=== PATIENT | female | born 1965 | race Caucasian/White ===

== ENCOUNTER 2021-05-20 09:57 | Observation (INO) | payer OTHER, SELFPAY ==
[2021-05-20] VITALS (8 sets, daily range): BP systolic 119–147; BP diastolic 72–87; PULSE 75–112; RESP 16–22; TEMP 36.7–36.9; O2SAT 91–97; BMI 29.2
--- NOTE | ~2021-05-20 | XR_ITS ---
EXAMINATION: XR CHEST CLINICAL INFORMATION: SOB, cough and asthma. COMPARISON: Chest 03/26/2017 TECHNIQUE: Frontal view of the chest was obtained. FINDINGS: The lungs are well-expanded and clear of acute pneumonic process. The heart size and pulmonary vascularity is normal. No gross bony abnormality seen. XR/XR chest 1V IMPRESSION: Unremarkable chest exam.
[2021-05-20 10:30] LABS: MANUAL DIFF FLAG NO
[2021-05-20 10:31] LABS: Basophils Absolute Auto 0.1 X10*3/uL (0.0-0.2); Basophils Percent Auto 0.8 % (0-2); Eosinophils Absolute Auto 0.9 X10*3/uL (0.0-0.4); Eosinophils Percent Auto 10.5 % (0-4); Hematocrit 38.2 % (37.0-47.0); Hemoglobin 12.9 g/dl (12.0-16.0); Imm Gran Abs Auto 0.03 X10*3/uL (0.00-0.03); Imm Gran Pct Auto 0.4 % (0.0-0.4); Lymphocytes Absolute Auto 2.6 X10*3/uL (1.2-4.9); Lymphocytes Percent Auto 30.5 % (20-40); Mean Corpuscular HGB Conc 33.8 g/dl (31.0-35.0); Mean Corpuscular Hemoglobin 29.7 pg (27.0-33.0); Mean Platelet Volume 9.2 fL (9.4-12.3); Monocytes Absolute Auto 0.7 X10*3/uL (0.1-1.2); Monocytes Percent Auto 8.5 % (2-11); Neutrophils Absolute Auto 4.1 x10*3/uL (2.0-8.3); Neutrophils Percent Auto 49.3 % (45-73); Platelet Count 260 X10*3/uL (160-400); Red Blood Count 4.34 X10*6/uL (4.20-5.50); Red Cell Distribution Width 12.2 % (11.0-16.0); White Blood Count 8.4 X10*3/uL (4.8-10.8)
[2021-05-20 10:50] LABS: Alanine Aminotransferase 62 U/L (0-31); Albumin Level 4.4 g/dL (3.5-5.0); Alkaline Phosphatase 77 U/L (39-117); Anion Gap 12 (12-20); Aspartate Amino Transferase 45 U/L (5-31); Bilirubin Direct 0.2 mg/dL (0.0-0.5); Bilirubin Total 0.6 mg/dL (0.0-1.0); Blood Urea Nitrogen 22 mg/dL (9-16); Calcium 9.3 mg/dL (8.4-10.2); Carbon Dioxide 22 mmol/L (22-29); Chloride 107 mmol/L (96-108); Creatinine Clr Calc Pharmacy 72.3; Estimated Glomerular Filt Rate > 60; Glucose Random 105 mg/dL (60-115); Magnesium 2.1 mg/dL (1.6-2.6); Potassium 4.4 mmol/L (3.3-5.1); Sodium 137 mmol/L (135-145); Total Protein 7.4 g/dL (6.5-8.0)
[2021-05-20 10:52] LABS: B Type Natriuretic Peptide < 10 pg/mL (<100); Troponin-I High Sensitivity < 3.5 ng/L (<3.5-17.0)
[2021-05-20 10:58] LABS: COVID-19 Test Negative (Negative); IDNOW Serial# 9DD0AD1C
--- NOTE | 2021-05-20 11:00 | ED_ITS ---
HPI - SOB/Dyspnea General Chief Complaint: Dyspnea Stated Complaint: diff breathing Time Seen by Provider: 05/20/21 10:03 Source: patient and EMS Mode of arrival: EMS History of Present Illness HPI Narrative: 56-year-old female with a past medical history of asthma, depression, hyperlipidemia, hypertension, BIBA from urgent care for worsening SOB, dry cough, & wheezing x1 week. Patient was noted to be satting 91% on RA at UC, improved to 92% after DuoNeb, was given additional DuoNeb and 125 mg of Solu-Medrol by EMS, satting 95% on RA on ED arrival. Reports chest tightness, admits symptoms similar to prior asthma exacerbations. Denies fever, chills, LE edema/calf pain, recent travel, COVID-19 exposure MD elicited complaint: shortness of breath and cough Related Data Home Medications Medication Instructions Recorded Confirmed albuterol sulfate 2.5 mg INHALATION Q4H 02/06/21 05/20/21 albuterol sulfate 90 mcg/actuation 1 puff INHALATION Q4H 02/06/21 05/20/21 aerosol inhaler amlodipine 10 mg tablet 10 mg PO DAILY 02/06/21 05/20/21 atorvastatin 40 mg tablet 40 mg PO DAILY 02/06/21 05/20/21 cetirizine 10 mg tablet 10 mg PO DAILY 02/06/21 05/20/21 clonazepam 0.5 mg tablet 0.5 mg PO BID PRN 02/06/21 05/20/21 fluticasone 250 mcg-salmeterol 50 1 ea INHALATION BID 02/06/21 05/20/21 mcg/dose blistr powdr for inhalation (Advair Diskus) montelukast 10 mg tablet 10 mg PO BEDTIME 02/06/21 05/20/21 pseudoephedrine HCl 30 mg tablet 30 mg PO Q4H PRN 02/06/21 05/20/21 venlafaxine 150 mg 300 mg PO DAILY 02/06/21 05/20/21 capsule,extended release 24 hr zolpidem 10 mg tablet 10 mg PO BEDTIME PRN 02/06/21 05/20/21 Allergies Allergy/AdvReac Type Severity Reaction Status Date / Time ragweed pollen Allergy Intermediate watery, Verified 02/08/21 15:44 itchy eyes, itchy throat. animal dander [PET DANDER] Allergy Unknown ITCHY Verified 02/08/21 15:44 Review of Systems Review of Systems: Constitutional: No Fever, No Fatigue, No Malaise ENT/Mouth: No Ear Pain, No Nasal Congestion, No sore throat, No Rhinorrhea Eyes: No Eye Pain, No Swelling, No Vision Changes Cardiovascular: + Chest Tightness, + SOB, No Dyspnea on Exertion,No Edema Respiratory: + Cough, No Sputum, + Wheezing, No Smoke Exposure, + Dyspnea Gastrointestinal: No Nausea, No Vomiting, No Diarrhea, No Constipation, No Abdominal pain Genitourinary: No Dysuria, No Urinary Frequency, No Flank Pain Musculoskeletal: No joint pain, No Myalgias, No Joint Swelling Skin: No Skin Lesions, No rash Neuro: No Weakness, No Dizziness, No Headache Yes all other systems are reviewed and are negative [facility] Past Medical History Attestation statement: The following information was validated with the patient. Medical History Asthma Depression High cholesterol Hypertension Social History Social History Alcohol intake: current Alcohol intake frequency: holidays/special occasions on ly Patient Tobacco Use Status: Never used Tobacco Use of substances other than those prescribed or required for medical reasons: No Advance Directives: No Advance Directives Information Provided: No Physical Exam Vital Signs: Vital Signs: Last Vital Signs Temp 98.1 F 05/20/21 10:58 Pulse 112 H 05/20/21 11:14 Resp 17 05/20/21 10:58 BP 121/79 05/20/21 10:58 Pulse Ox 92 05/20/21 10:58 Body Mass Index 29.2 Const: General: cooperative, healthy appearing and no acute distress Orientation/consciousness: patient oriented x3 Limitations: no limitations HENMT: Head: Yes normal to inspection Ears: hearing grossly normal bilaterally General nose exam: Normal external nose present Face and sinus: Yes normal facial exam Eyes: General: appearance normal, both eyes and all related structures EOM: EOMs intact bilaterally Neck: Neck: Yes normal visual inspection and Yes no meningeal signs Resp: Effort & Inspection: normal respiratory effort Auscultation: wheezes expiratory wheezes and throughout and diminished lung sounds diffuse Cardio: Rate: regular rate Heart sounds: S1 normal heart sound present and S2 normal heart sound present GI: Inspection: Yes normal to inspection Palpation (GI): Soft to palpation, nontender, no guarding and not rigid Skin: Rashes: no rashes Wounds: no wounds Neuro: General: patient oriented x3 and no meningeal signs Gait exam (Neuro): Normal gait present Extrem: General: Yes normal to inspection, Yes no pedal edema and Yes no calf tenderness Course Course Course Narrative: -1109--no leukocytosis. AST/ALT mildly elevated. labs otherwise unremarkable. troponin negative -Covid-19 negative XR chest 1V IMPRESSION: Unremarkable chest exam. ? -1202--On re-evaluation patient still with diffuse wheezing and tight lung sounds. Plan for admission MDM - SOB/Dyspnea MDM Narrative Medical decision making narrative: 56-year-old female with a past medical history of asthma, depression, hyperlipidemia, hypertension, BIBA from urgent care for worsening SOB, dry cough, & wheezing x1 week. On exam satting 95% on RA diffuse x-ray krystal wheeze with decreased breath sounds throughout, no pedal edema/calf tenderness. Concern for asthma exacerbation. Lower concern ACS/PE, CHF. Rule out restenosis COVID-19 and pneumonia Plan: EKG, labs, CXR, COVID-19 testing, DuoNeb, magnesium, re-evaluate Differential Diagnosis Differential diagnosis: Likely acute exacerbation of chronic obstructive airways disease, congestive heart failure, pneumonia and asthma with exacerbation Medical Records Attestation: I reviewed the patient's medical records. Lab Data Attestation: I reviewed the patient's lab results. Result diagrams: 05/20/21 10:22 05/20/21 10:22 Labs: Lab Results 05/20/21 05/20/21 05/20/21 Range/Units 10:22 10:22 10:22 WBC 8.4 (4.8-10.8) X10*3/uL RBC 4.34 (4.20-5.50) X10*6/uL Hgb 12.9 (12.0-16.0) g/dl Hct 38.2 (37.0-47.0) % MCV 88.0 (80.0-98.0) fL MCH 29.7 (27.0-33.0) pg MCHC 33.8 (31.0-35.0) g/dl RDW 12.2 (11.0-16.0) % Plt Count 260 (160-400) X10*3/uL MPV 9.2 L (9.4-12.3) fL Immature Gran % (Auto) 0.4 (0.0-0.4) % Neut % (Auto) 49.3 (45-73) % Lymph % (Auto) 30.5 (20-40) % [place] % (Auto) 8.5 (2-11) % Eos % (Auto) 10.5 H (0-4) % Baso % (Auto) 0.8 (0-2) % Lymph # (Auto) 2.6 (1.2-4.9) X10*3/uL [place] # (Auto) 0.7 (0.1-1.2) X10*3/uL Eos # (Auto) 0.9 H (0.0-0.4) X10*3/uL Baso # (Auto) 0.1 (0.0-0.2) X10*3/uL Abs Immat Gran (auto) 0.03 (0.00-0.03) X10*3/uL Absolute Neuts (auto) 4.1 (2.0-8.3) x10*3/uL Absolute Nucleated RBC 0.000 (0.0-0.012) X10*3/uL Nucleated RBC % (auto) 0.0 (0.0-0.2) /100WBC Sodium 137 (135-145) mmol/L Potassium 4.4 (3.3-5.1) mmol/L Chloride 107 (96-108) mmol/L Carbon Dioxide 22 (22-29) mmol/L Anion Gap 12 (12-20) BUN 22 H (9-16) mg/dL Creatinine 0.79 (0.5-1.4) mg/dL Estim Creat Clear Calc 72.3 Estimated GFR > 60 Random Glucose 105 (60-115) mg/dL Calcium 9.3 (8.4-10.2) mg/dL Magnesium 2.1 (1.6-2.6) mg/dL Total Bilirubin 0.6 (0.0-1.0) mg/dL Direct Bilirubin 0.2 (0.0-0.5) mg/dL AST 45 H (5-31) U/L ALT 62 H (0-31) U/L Alkaline Phosphatase 77 (39-117) U/L Troponin I High Sens < 3.5 (<3.5-17.0) ng/L B-Natriuretic Peptide < 10 (<100) pg/mL Total Protein 7.4 (6.5-8.0) g/dL Albumin 4.4 (3.5-5.0) g/dL COVID-19 ([place]) (Negative) COVID-19 Clin Com 05/20/21 Range/Units 10:22 WBC (4.8-10.8) X10*3/uL RBC (4.20-5.50) X10*6/uL Hgb (12.0-16.0) g/dl Hct (37.0-47.0) % MCV (80.0-98.0) fL MCH (27.0-33.0) pg MCHC (31.0-35.0) g/dl RDW (11.0-16.0) % Plt Count (160-400) X10*3/uL MPV (9.4-12.3) fL Immature Gran % (Auto) (0.0-0.4) % Neut % (Auto) (45-73) % Lymph % (Auto) (20-40) % [place] % (Auto) (2-11) % Eos % (Auto) (0-4) % Baso % (Auto) (0-2) % Lymph # (Auto) (1.2-4.9) X10*3/uL [place] # (Auto) (0.1-1.2) X10*3/uL Eos # (Auto) (0.0-0.4) X10*3/uL Baso # (Auto) (0.0-0.2) X10*3/uL Abs Immat Gran (auto) (0.00-0.03) X10*3/uL Absolute Neuts (auto) (2.0-8.3) x10*3/uL Absolute Nucleated RBC (0.0-0.012) X10*3/uL Nucleated RBC % (auto) (0.0-0.2) /100WBC Sodium (135-145) mmol/L Potassium (3.3-5.1) mmol/L Chloride (96-108) mmol/L Carbon Dioxide (22-29) mmol/L Anion Gap (12-20) BUN (9-16) mg/dL Creatinine (0.5-1.4) mg/dL Estim Creat Clear Calc Estimated GFR Random Glucose (60-115) mg/dL Calcium (8.4-10.2) mg/dL Magnesium (1.6-2.6) mg/dL Total Bilirubin (0.0-1.0) mg/dL Direct Bilirubin (0.0-0.5) mg/dL AST (5-31) U/L ALT (0-31) U/L Alkaline Phosphatase (39-117) U/L Troponin I High Sens (<3.5-17.0) ng/L B-Natriuretic Peptide (<100) pg/mL Total Protein (6.5-8.0) g/dL Albumin (3.5-5.0) g/dL COVID-19 ([place]) Negative (Negative) COVID-19 Clin Com See Note ECG Data Attestation: I personally reviewed and interpreted this ECG as follows: ECG interpretation date: 05/20/21 ECG interpretation time: 11:37 Prior ECG tracings: available for review Interpretation: EKG normal sinus rhythm at a rate of 88. RI interval 158. ST depression in V4 and V5 unchanged from prior. QTC 479. No STEMI Discharge Plan Discharge Clinical Impression: Asthma exacerbation Prescriptions: No Action zolpidem 10 mg tablet 10 mg PO BEDTIME PRN (Reason: Insomnia) RF: 0 venlafaxine 150 mg capsule,extended release 24hr 300 mg PO DAILY RF: 0 clonazepam 0.5 mg tablet 0.5 mg PO BID PRN (Reason: anxiety) RF: 0 cetirizine 10 mg tablet 10 mg PO DAILY RF: 0 atorvastatin 40 mg tablet 40 mg PO DAILY RF: 0 montelukast 10 mg tablet 10 mg PO BEDTIME RF: 0 amlodipine 10 mg tablet 10 mg PO DAILY RF: 0 fluticasone propion-salmeterol [Advair Diskus] 250-50 mcg/dose blister with device 1 ea inhalation BID RF: 0 albuterol sulfate 2.5 mg /3 mL (0.083 %) solution for nebulization 2.5 mg inhalation Q4H RF: 0 pseudoephedrine HCl 30 mg tablet 30 mg PO Q4H PRN (Reason: congestion) RF: 0 albuterol sulfate 90 mcg/actuation HFA aerosol inhaler 1 puff inhalation Q4H RF: 0
--- NOTE | 2021-05-20 11:08 | ECG_ITS ---
Test Reason : SOB Blood Pressure : / mmHG Vent. Rate : 088 BPM Atrial Rate : 088 BPM P-R Int : 152 ms QRS Dur : 086 ms QT Int : 396 ms P-R-T Axes : 054 006 017 degrees QTc Int : 479 ms Normal sinus rhythm Nonspecific ST abnormality Abnormal ECG When compared with ECG of 01-DEC-2017 18:41, No significant change was found Referred By: Amy De La Rosa Electronically Signed By:JOSE CHRISTOPHER MD
[2021-05-20] MEDS: Albuterol Sulfate (0.083%) 2.5 MG/3 ML VIAL.NEB 10 MG INHALE (11:12)
[2021-05-20] MEDS: Magnesium Sulfate/H2O 2 GM/50 ML PIGGYBACK IV (11:19)
--- NOTE | 2021-05-20 11:58 | PHA.MEDREC ---
Pharmacy Consult ? Medication Reconciliation Pharmacy has completed the medication reconciliation. There are no remarkable issues for provider's attention. Cheryl Rosales, [facility]
--- NOTE | 2021-05-20 12:15 | PC.NURSE ---
pt seen by hosp (dr. kim) pt aware of plan of care for admission to hosp.
--- NOTE | 2021-05-20 12:18 | P.HPHOSP_ITS ---
History of Present Illness Date of Service: 05/20/21 Chief Complaint: sob 56-year-old female presented with shortness of breath. Patient has mild intermittent asthma, usually triggered by seasonal allergies. Never intubated, rarely hospitalize, but does have about 4 significant exacerbations per year. She reports progressive shortness of breath over the last week, no clear trigger, was unable to get outpatient appointment so she came to the ED. In ED patient saturation was 91% on room air, was given steroids and bronchodilators but still persistently wheezing. Review of Systems Review of Systems: Constitutional: Denies fever, denies Chills Eyes: denies blurry vision ENT: denies sore throat CVS: denies chest pain Respiratory: dyspnea GI: no abdominal pain : denies dysuria MSK: denies neck pain Skin: denies rash Neuro: denies specific motor weakness Psych: denies suicidal ideation Endocrine: denies heat/cold intolerance Hematologic: denies easy bleeding Allergy: denies hives [facility] Medical History Asthma Depression High cholesterol Hypertension Family History (Updated 05/20/21 @ 12:25 by Klaus Allen MD) Father Lung cancer Social History Alcohol intake: current Alcohol intake frequency: holidays/special occasions only Patient Tobacco Use Status: Never used Tobacco Use of substances other than those prescribed or required for medical reasons: No Advance Directives: No Advance Directives Information Provided: No Meds Allergies Allergy/AdvReac Type Severity Reaction Status Date / Time ragweed pollen Allergy Intermediate watery, Verified 02/08/21 15:44 itchy eyes, itchy throat. animal dander [PET DANDER] Allergy Unknown ITCHY Verified 02/08/21 15:44 Active Medications: Current Medications Amlodipine Besylate (Amlodipine Besylate 10 Mg Tablet) 10 mg PO DAILY [facility]; Protocol Atorvastatin Calcium (Atorvastatin Calcium 40 Mg Tablet) 40 mg PO DAILY [facility] Clonazepam (Clonazepam 0.5 Mg Tablet) 0.5 mg PO BID PRN PRN Reason: anxiety Loratadine (Loratadine 10 Mg Tablet) 10 mg PO DAILY [facility] Pharmacy Consult (Consult Rx Perform Med Rec) 1 each MISCELLANE ONCE PRN PRN Reason: Consult order Home Medications Medication Instructions Recorded Confirmed Last Taken Type albuterol sulfate 2.5 mg INHALATION Q4H 02/06/21 05/20/21 Unknown History albuterol sulfate 90 mcg/actuation 1 puff INHALATION Q4H 02/06/21 05/20/21 Unknown History aerosol inhaler amlodipine 10 mg tablet 10 mg PO DAILY 02/06/21 05/20/21 05/20/21 History atorvastatin 40 mg tablet 40 mg PO DAILY 02/06/21 05/20/21 05/20/21 History cetirizine 10 mg tablet 10 mg PO DAILY 02/06/21 05/20/21 05/20/21 History clonazepam 0.5 mg tablet 0.5 mg PO BID PRN 02/06/21 05/20/21 Unknown History fluticasone 250 mcg-salmeterol 50 1 ea INHALATION BID 02/06/21 05/20/21 05/20/21 History mcg/dose blistr powdr for inhalation (Advair Diskus) montelukast 10 mg tablet 10 mg PO BEDTIME 02/06/21 05/20/21 05/19/21 History pseudoephedrine HCl 30 mg tablet 30 mg PO Q4H PRN 02/06/21 05/20/21 Unknown History venlafaxine 150 mg 300 mg PO DAILY 02/06/21 05/20/21 05/20/21 History capsule,extended release 24 hr zolpidem 10 mg tablet 10 mg PO BEDTIME PRN 02/06/21 05/20/21 Unknown History Physical Exam Vital Signs and Narrative: Vital Signs: Last Vital Signs Temp 98.1 F 05/20/21 10:58 Pulse 112 H 05/20/21 11:14 Resp 17 05/20/21 10:58 BP 121/79 05/20/21 10:58 Pulse Ox 92 05/20/21 10:58 Body Mass Index 29.2 General: no acute distress HEENT: atraumatic Neck: normal to visual inspection CVS: S1, S2, RRR Resp: diminished, wheezes Chest: non tender GI: soft, non tender, non distended : no CVA tenderness Skin: no rashes Extremities: no edema Neuro: Oriented X3, grossly intact Psych: cooperative Results Labs CBC and Chem 7: 05/20/21 10:22 05/20/21 10:22 Labs: Laboratory Results - last 24 hr 05/20/21 05/20/21 05/20/21 10:22 10:22 10:22 MCV 88.0 MCH 29.7 MCHC 33.8 RDW 12.2 Plt Count 260 MPV 9.2 L Immature Gran % (Auto) 0.4 Neut % (Auto) 49.3 Lymph % (Auto) 30.5 [place] % (Auto) 8.5 Eos % (Auto) 10.5 H Baso % (Auto) 0.8 Lymph # (Auto) 2.6 [place] # (Auto) 0.7 Eos # (Auto) 0.9 H Baso # (Auto) 0.1 Abs Immat Gran (auto) 0.03 Absolute Neuts (auto) 4.1 Absolute Nucleated RBC 0.000 Nucleated RBC % (auto) 0.0 Anion Gap 12 Estim Creat Clear Calc 72.3 Estimated GFR > 60 Random Glucose 105 Calcium 9.3 Magnesium 2.1 Total Bilirubin 0.6 Direct Bilirubin 0.2 AST 45 H ALT 62 H Alkaline Phosphatase 77 Troponin I High Sens < 3.5 B-Natriuretic Peptide < 10 Total Protein 7.4 Albumin 4.4 COVID-19 ([place]) COVID-19 Clin Com 05/20/21 10:22 MCV MCH MCHC RDW Plt Count MPV Immature Gran % (Auto) Neut % (Auto) Lymph % (Auto) [place] % (Auto) Eos % (Auto) Baso % (Auto) Lymph # (Auto) [place] # (Auto) Eos # (Auto) Baso # (Auto) Abs Immat Gran (auto) Absolute Neuts (auto) Absolute Nucleated RBC Nucleated RBC % (auto) Anion Gap Estim Creat Clear Calc Estimated GFR Random Glucose Calcium Magnesium Total Bilirubin Direct Bilirubin AST ALT Alkaline Phosphatase Troponin I High Sens B-Natriuretic Peptide Total Protein Albumin COVID-19 ([place]) Negative COVID-19 Clin Com See Note Imaging Radiologist's Impressions: Impressions Chest X-Ray 05/20/21 10:08 IMPRESSION: Unremarkable chest exam. Assessment and Plan (1) Asthma exacerbation: Qualifiers: Asthma severity: mild Asthma persistence: unspecified Qualified Code(s): J45.901 - Unspecified asthma with (acute) exacerbation Status: Acute 56F Presented shortness of breath acute exasperation of mild intermittent asthma IV Solu-Medrol bronchodilators continue inhaled steroid with Laba singular hypertension amlodipine hyperlipidemia statin depression/anxiety venlafaxine DVT prophylaxis with Lovenox Quality Stroke Does the patient have a stroke diagnosis?: No VTE Prior VTE?: No VTE Risk Level:: Medical - moderate - high VTE Device Contraindication: Treatment Not Indicated VTE Drug Contraindication: N/A - Med Ordered
[2021-05-20] MEDS: Enoxaparin Sodium 40 MG/0.4 ML SYRINGE SUBCUT (14:13)
[2021-05-20] MEDS: clonazePAM 0.5 MG TABLET PO (14:13)
[2021-05-20] MEDS: guaiFENesin 100 MG/5 ML LIQUID PO (14:15)
--- NOTE | 2021-05-20 15:14 | PC.NURSE ---
LS tight, request treatment. Pt noted with mostly expiratory wheezing throughout ith scattered inspiratory wheezing. 94% on 2 lpm. Speaking full sentences but appears SOB with activity. Resp dept called
[2021-05-20] MEDS: 0.9 % Sodium Chloride Flush 3 ML SYRINGE IVFLUSH (15:16)
[2021-05-20] MEDS: Albuterol/Iprat 2.5/0.5MG 3 ML AMPUL.NEB INHALE (16:14)
--- NOTE | 2021-05-20 17:59 | PC.NURSE ---
Pt requesting to go home, Dr Allen aware and down to see pt. Plan for discharge. RA sat 95-97%, pt feels well enough to be discharged and will return for worsening sx.
--- NOTE | 2021-05-20 18:00 | P.DS_ITS ---
DS: Providers Provider Date of Service: 05/20/21 Date of admission: 05/20/21 12:28 Primary care physician: KRISTINA Whitman DS: Diagnosis Discharge Diagnosis (1) Asthma exacerbation: Status: Acute DS: Summary Hospital Course Hospital Course: patient was admitted for acute exacerbation of mild intermittent asthma. She was treated with IV Solu-Medrol and bronchodilators. She later noted enough improvement that she wanted to go home, she is now 94 to 96% on room air. she will be discharged home with 5 days of prednisone 40 mg daily and cough medicine. Time Spent with Patient Time attestation: Total time spent providing and/or coordinating discharge services: Discharge coordination time: Greater than 30 minutes Quality: Stroke Does the patient have a stroke diagnosis?: No Physical Exam Vital Signs: Vital Signs: Last Vital Signs Temp 98.1 F 05/20/21 10:58 Pulse 89 05/20/21 16:17 Resp 22 H 05/20/21 15:13 BP 125/72 05/20/21 15:13 Pulse Ox 94 05/20/21 15:13 Body Mass Index 29.2 General: AO X 3, no acute distress Resp: wheeze bilateral, no accessory muscles used CVS: S1,S2,RRR GI: soft, non tender, non distended Neuro: motor grossly intact, alert Psych: appropriate affect, appropriate insight DS: Data Data Completed and Pending Labs on day of discharge: Laboratory Results - last 24 hr 05/20/21 05/20/21 05/20/21 10:22 10:22 10:22 WBC 8.4 RBC 4.34 Hgb 12.9 Hct 38.2 MCV 88.0 MCH 29.7 MCHC 33.8 RDW 12.2 Plt Count 260 MPV 9.2 L Immature Gran % (Auto) 0.4 Neut % (Auto) 49.3 Lymph % (Auto) 30.5 [place] % (Auto) 8.5 Eos % (Auto) 10.5 H Baso % (Auto) 0.8 Lymph # (Auto) 2.6 [place] # (Auto) 0.7 Eos # (Auto) 0.9 H Baso # (Auto) 0.1 Abs Immat Gran (auto) 0.03 Absolute Neuts (auto) 4.1 Absolute Nucleated RBC 0.000 Nucleated RBC % (auto) 0.0 Sodium 137 Potassium 4.4 Chloride 107 Carbon Dioxide 22 Anion Gap 12 BUN 22 H Creatinine 0.79 Estim Creat Clear Calc 72.3 Estimated GFR > 60 Random Glucose 105 Calcium 9.3 Magnesium 2.1 Total Bilirubin 0.6 Direct Bilirubin 0.2 AST 45 H ALT 62 H Alkaline Phosphatase 77 Troponin I High Sens < 3.5 B-Natriuretic Peptide < 10 Total Protein 7.4 Albumin 4.4 COVID-19 ([place]) COVID-19 Clin Com 05/20/21 10:22 WBC RBC Hgb Hct MCV MCH MCHC RDW Plt Count MPV Immature Gran % (Auto) Neut % (Auto) Lymph % (Auto) [place] % (Auto) Eos % (Auto) Baso % (Auto) Lymph # (Auto) [place] # (Auto) Eos # (Auto) Baso # (Auto) Abs Immat Gran (auto) Absolute Neuts (auto) Absolute Nucleated RBC Nucleated RBC % (auto) Sodium Potassium Chloride Carbon Dioxide Anion Gap BUN Creatinine Estim Creat Clear Calc Estimated GFR Random Glucose Calcium Magnesium Total Bilirubin Direct Bilirubin AST ALT Alkaline Phosphatase Troponin I High Sens B-Natriuretic Peptide Total Protein Albumin COVID-19 ([place]) Negative COVID-19 Clin Com See Note Discharge Plan Discharge Patient Disposition: Home, Self-Care Referrals: Dony Quinones PA [Primary Care Provider] - 1 Week Discharge Medications: New prednisone 20 mg tablet 40 mg PO DAILY Qty: 10 RF: 0 Robitussin Cough and Cold CF 2.5-5-50 mg/5 mL liquid 15 ml PO Q4H PRN (Reason: cold symptoms) Qty: 118 RF: 0 Continued zolpidem 10 mg tablet 10 mg PO BEDTIME PRN (Reason: Insomnia) RF: 0 venlafaxine 150 mg capsule,extended release 24hr 150 mg PO BID RF: 0 clonazepam 0.5 mg tablet 0.5 mg PO BID PRN (Reason: anxiety) RF: 0 cetirizine 10 mg tablet 10 mg PO DAILY RF: 0 atorvastatin 40 mg tablet 40 mg PO DAILY RF: 0 montelukast 10 mg tablet 10 mg PO BEDTIME RF: 0 amlodipine 10 mg tablet 10 mg PO DAILY RF: 0 fluticasone propion-salmeterol [Advair Diskus] 250-50 mcg/dose blister with device 1 ea inhalation BID RF: 0 albuterol sulfate 2.5 mg /3 mL (0.083 %) solution for nebulization 2.5 mg inhalation Q4H RF: 0 pseudoephedrine HCl 30 mg tablet 30 mg PO Q4H PRN (Reason: congestion) RF: 0 albuterol sulfate 90 mcg/actuation HFA aerosol inhaler 1 puff inhalation Q4H RF: 0 Discharge Orders: Discharge Order (Routine); Ordered 05/20/21 Ordered By: Klaus Allen Diet: advance to usual diet Activity on Discharge: As tolerated Stand Alone Forms: Patient Portal Discharge page Care Plan Goals: reocvery Health Concerns: asthma Plan of Treatment: prednisone for 5 days, albuterol as needed, return if symptoms worsening Assessment: see above
--- NOTE | 2021-05-20 18:49 | MHC.CM.PN ---
Addendum entered by Flory Rivera 05/20/21 18:56: Pt d/c prior to CM completing MAC with patient. Original Note: CM met with patient who was admitted to observation at 12:15. Requesting discharge from ED. States she feels better. Pt seen by Dr. Allen. D/C orders at 1800. CM met briefly with patient prior to d/c home. Pt lives alone. Is employed. Uses no DME or services. No HCP on file. Pt requesting HCP to be completed prior to D/C. HCP reviewed, completed, and signed per protocol. HCP /daughter Kendra Pinzon ([phone]). Copies given and uploaded into [employer] and [employer]. Pt awaiting for discharge home.
== END 2021-05-20 18:59 | disposition home or self-care (01) ==
LOC: HO.ED 12:07 → HO.EDOVER 12:31
PROVIDERS: Physician Assistant; Admitting Provider Internal Medicine; Emergency Provider Emergency Medicine; PCP Physician Assistant Medical; Visit Provider Internal Medicine
DX: J45.901 Unspecified asthma with (acute) exacerbation (principal); Z20.822 Contact with and (suspected) exposure to COVID-19; Z79.899 Other long term (current) drug therapy
CPT/HCPCS: 36415; 71045; 80048; 80076; 83735; 83880; 84484; 85025; 87635; 93005; 94640; 94644; 96365; 96366; 96372; 96375; 99218; 99284; 99285; J1650; J3475

== ENCOUNTER 2022-02-12 14:52 | Outpatient (REF) | payer OTHER, SELFPAY ==
[2022-02-15 04:41] LABS: HPV mRNA E6/E7 rflx Not Detected (Not Detected)
== END 2022-02-12 14:53 | disposition home or self-care (01) ==
LOC: HO.LAB 14:52
PROVIDERS: Visit Provider Advanced Practice Midwife
DX: Z01.419 Encounter for gynecological examination (general) (routine) without abnormal findings (principal); Z11.51 Encounter for screening for human papillomavirus (HPV)
CPT/HCPCS: 87624; 88142

== ENCOUNTER 2023-05-28 12:36 | Outpatient (AMB) | payer OTHER, SELFPAY ==
--- NOTE | 2023-05-28 13:22 | MHC.OFFWIV ---
Intake Vital Signs 05/28/23 13:25 Height 5 ft 2 in Weight 168 lb BMI 30.7 BP 128/70 Blood Pressure Location Rt brachial Position Sitting Pulse 86 Pulse Source Pulse Oximeter Temp 97.5 F Pulse Oximetry (%) 98 Oxygen Delivery Method Room Air Intake Visit Reasons: EP Asthma symptoms Intake Note: pt is here today for asthma symptoms started 3 days ago Patient Tobacco Use Status: Never used Tobacco Allergies ragweed pollen Allergy (Intermediate, Verified 05/28/23 13:23) watery, itchy eyes, itchy throat. animal dander [PET DANDER] Allergy (Unknown, Verified 05/28/23 13:23) ITCHY Do you need a note to return to daycare/school/sports/work: No HPI HPI Comments History of Present Illness Details This is a 58-year-old female with a past medical history of hypertension, hyperlipidemia and asthma for which she takes Advair and Singulair daily presenting for evaluation of increased cough, wheezing and shortness of breath over the past 4 days. Patient has been using her albuterol inhaler with increased frequency. Patient denies having any fevers, chills, ear pain, sore throat, chest pain or hemoptysis. Patient also denies any recent sick contacts. [facility] Medical History High cholesterol Hypertension Depression Asthma Surgical History H/O thumb surgery History of back surgery History of endometrial ablation Family History Father Lung cancer Mother Bladder cancer Social History Alcohol intake: current Alcohol intake frequency: a few times a week Patient Tobacco Use Status: Never used Tobacco Advance Directives Date on File: 05/20/21 service: No Current occupational status: employed Review of Systems Const All systems reviewed & are unremarkable except as noted in HPI and below Denies chills, Denies fatigue and Denies fever(s) ENT Reports no additional complaints Card Reports dyspnea Resp Reports as per HPI, Reports cough, Denies hemoptysis, Reports dyspnea and Reports wheezing Musc Reports no additional complaints Neuro Reports no additional complaints Psych Reports no additional complaints Endo Denies fatigue Aller/Immun Reports wheezing Physical Exam Vital Signs: Last Vital Signs Temp 97.5 F 05/28/23 13:25 Pulse 86 05/28/23 13:25 BP 128/70 05/28/23 13:25 Pulse Ox 98 05/28/23 13:25 Oxygen Delivery Method Room Air 05/28/23 13:25 BMI result Body Mass Index 30.7 Const General: cooperative, healthy appearing, comfortable and no acute distress Nutritional Appearance: average body habitus Orientation/consciousness: patient oriented x3 Limitations: no limitations HEENT Head: Yes normal to inspection and Yes normocephalic Ears: hearing grossly normal bilaterally, external ears normal, TM's normal bilaterally and EAC's normal General nose exam: Normal external nose present Face and sinus: Yes normal facial exam and Yes sinuses nontender Mouth: Normal oral and palatal mucosa present Throat: Yes posterior oropharynx normal Eyes Eyelids: Yes eyelids normal Conjunctivae: conjunctivae normal Sclerae: sclerae normal Pupils: Equal, round and reactive pupils present EOM: EOMs intact bilaterally Neck Lymphatic: no lymphadenopathy noted Resp Effort & Inspection: normal respiratory effort, able to speak in complete sentences and Actively coughing Auscultation: wheezes expiratory wheezes and upper bilaterally Cardio Rate: regular rate Rhythm: regular rhythm Skin General skin exam: no rashes or lesions noted Neuro General: patient oriented x3 Cranial nerves: Yes Equal, round and reactive pupils present Psych Appearance: grossly normal Mental Status: mental status grossly normal Insight: Good insight present (Psych) Judgement: Good judgement present (Psych) Assessment & Plan Assessment & Plan (1) Asthma exacerbation: Code(s): J45.901 - Unspecified asthma with (acute) exacerbation Qualifiers: Asthma severity: mild Asthma persistence: unspecified Qualified Code(s): J45.901 - Unspecified asthma with (acute) exacerbation Plan Prednisone 40mg daily x 5 days. Patient to follow-up at urgent care or with PCP for any worsening symptoms. Medications: New prednisone 40 mg (2 x 20 mg) PO DAILY 10 tabs 0RF Coding Level of Care Code Est Pt Level 3 (92100) Diagnoses Moderate persistent asthma with exacerbation J45.901 Asthma severity: mild Asthma persistence: unspecified Time Spent (min) 20
[2023-05-28 13:25] VITALS: BP 128/70; PULSE 86; TEMP 36.4; O2SAT 98; BMI 30.7
== END 2023-05-28 14:00 | disposition home or self-care (01) ==
PROVIDERS: PCP Internal Medicine; Visit Provider Physician Assistant
DX: J45.901 Unspecified asthma with (acute) exacerbation (principal)
CPT/HCPCS: 99213

== ENCOUNTER 2023-08-05 08:06 | Outpatient (AMB) | payer OTHER, SELFPAY ==
--- NOTE | 2023-08-05 08:07 | AM.OFFWIN_ITS ---
Intake Vital Signs 08/05/23 08:08 Height 5 ft 2 in Weight 165 lb BMI 30.2 BP 128/74 Blood Pressure Location Rt brachial Position Sitting Pulse 86 Pulse Source Pulse Oximeter Temp 98.1 F Temp Source Oral Pulse Oximetry (%) 96 Oxygen Delivery Method Room Air Intake Visit Reasons: EP asthma flare up Intake Note: pt is here for c.o head cold a few days ago and it breaking up and has chest congestion Patient Tobacco Use Status: Never used Tobacco Allergies ragweed pollen Allergy (Intermediate, Verified 08/05/23 08:12) watery, itchy eyes, itchy throat. animal dander [PET DANDER] Allergy (Unknown, Verified 08/05/23 08:12) ITCHY Do you need a note to return to daycare/school/sports/work: No HPI EP asthma flare up HPI Details 58-year-old female presents to the [facility] for a sick visit. Patient reports symptoms of asthma exacerbation. It includes wheezing, nonproductive cough and head congestion. Symptoms present for the past week. Nonsmoker. Lives alone and works from home a few days in a week. [facility] Medical History High cholesterol Hypertension Depression Asthma Surgical History H/O thumb surgery History of back surgery History of endometrial ablation Family History Father Lung cancer Mother Bladder cancer Social History Alcohol intake: current Alcohol intake frequency: a few times a week Patient Tobacco Use Status: Never used Tobacco Advance Directives Date on File: 05/20/21 service: No Current occupational status: employed Physical Exam Vital Signs: Last Vital Signs Temp 98.1 F 08/05/23 08:08 Pulse 86 08/05/23 08:08 BP 128/74 08/05/23 08:08 Pulse Ox 96 08/05/23 08:08 Oxygen Delivery Method Room Air 08/05/23 08:08 BMI result Body Mass Index 30.2 Const General: cooperative and healthy appearing Nutritional Appearance: well nourished Orientation/consciousness: patient oriented x3 Limitations: no limitations HEENT Head: Yes normal to inspection Eyes General: appearance normal, both eyes and all related structures Neck Neck: Yes normal visual inspection Chest Chest palpation & inspection: normal palpation of entire chest wall Resp Other: Scattered wheeze Effort & Inspection: normal respiratory effort Neuro General: patient oriented x3 Assessment & Plan Assessment & Plan (1) Asthma exacerbation: Code(s): J45.901 - Unspecified asthma with (acute) exacerbation Qualifiers: Asthma severity: mild Asthma persistence: unspecified Qualified Code(s): J45.901 - Unspecified asthma with (acute) exacerbation Plan Prednisone and azithromycin called in. Patient reports she has enough albuterol at home. Advised her to take it 4 times a a day. Symptoms do not improve to follow-up here. Medications: New azithromycin take 500 mg today (day 1), then 250 mg for 4 days (days 2-5) PO 6 tabs 0RF prednisone 60 mg (3 x 20 mg) PO DAILY 9 tabs 0RF Coding Level of Care Code Est Pt Level 3 (64371) Diagnoses Moderate persistent asthma with exacerbation J45.901 Asthma severity: mild Asthma persistence: unspecified
[2023-08-05 08:08] VITALS: BP 128/74; PULSE 86; TEMP 36.7; O2SAT 96; BMI 30.2
== END 2023-08-05 08:41 | disposition home or self-care (01) ==
PROVIDERS: PCP Internal Medicine; Visit Provider Internal Medicine
DX: J45.901 Unspecified asthma with (acute) exacerbation (principal)
CPT/HCPCS: 99213

== ENCOUNTER 2023-08-15 11:01 | Outpatient (AMB) | payer OTHER, SELFPAY ==
--- NOTE | 2023-08-15 11:13 | MHC.OFFWIV ---
Intake Vital Signs 08/15/23 11:14 Height 5 ft 2 in Weight 168 lb BMI 30.7 BP 118/72 Blood Pressure Location Rt brachial Position Sitting Pulse 78 Pulse Source Pulse Oximeter Temp 98.6 F Temp Source Oral Pulse Oximetry (%) 98 Oxygen Delivery Method Room Air Intake Visit Reasons: EP Asthma symptoms Intake Note: Patient here for Asthma flare up. wheezing for a couple weeks and has progressively worsened, she also has chest tightness. Patient Tobacco Use Status: Never used Tobacco Allergies ragweed pollen Allergy (Intermediate, Verified 08/15/23 11:16) watery, itchy eyes, itchy throat. animal dander [PET DANDER] Allergy (Unknown, Verified 08/15/23 11:16) ITCHY Do you need a note to return to daycare/school/sports/work: No HPI HPI Comments History of Present Illness Details She presents with asthma issue Was seen last week for asthma and given 9 pills of predisone Coughing; + production of mucus; no blood No fever chills Wheeze and cough bothersome +congestion and wheeze Tylenol, Benadryl and mucinex without relief Has proair and nebulizer She used nebulizer in middle of night Using proair too often She finished azithromycin and only prednisone 60mg x 2 days PFSH Medical History High cholesterol Hypertension Depression Asthma Surgical History H/O thumb surgery History of back surgery History of endometrial ablation Family History Father Lung cancer Mother Bladder cancer Social History Alcohol intake: current Alcohol intake frequency: a few times a week Patient Tobacco Use Status: Never used Tobacco Advance Directives Date on File: 05/20/21 service: No Current occupational status: employed Review of Systems Const Denies body aches, Denies chills, Denies fatigue and Denies fever(s) ENT Denies otalgia, Reports nasal discharge and Denies sore throat Card Denies chest pain and Reports dyspnea Resp Denies change in phlegm color, Reports cough, Reports dyspnea and Reports wheezing Endo Denies fatigue Aller/Immun Reports wheezing Physical Exam Vital Signs: Last Vital Signs Temp 98.6 F 08/15/23 11:14 Pulse 78 08/15/23 11:14 BP 118/72 08/15/23 11:14 Pulse Ox 98 08/15/23 11:14 Oxygen Delivery Method Room Air 08/15/23 11:14 BMI result Body Mass Index 30.7 General: Non-toxic, NAD. Speaking full sentences. Skin: Warm dry throughout Eye: EOMI HENT: Airway patent. Uvula midline. No pharyngeal erythema or edema. No [employer]. Bilateral canals clear. TM non-erythematous, non-bulging. No TM perforation or hemotympanum noted. Respiratory: + poor ausculatory effort due to tightness. Upper airway wheeze without stridor. No rales or rhonchi Cardiac: RRR. No murmur MSK: Full ROM extremities. Neurology: A/O. No aphasia or facial droop. Gait without abnormality Psych: Good mood and affect Assessment & Plan Assessment & Plan (1) Asthma exacerbation: Code(s): J45.901 - Unspecified asthma with (acute) exacerbation Qualifiers: Asthma severity: mild Asthma persistence: unspecified Qualified Code(s): J45.901 - Unspecified asthma with (acute) exacerbation Plan: Patient seen and evaluated. No rales on exam Prednisone x 5 days Cough medicine with codeine for night. No alcohol or driving. + lethargy. No zolpidem or clonazepam with this script, pt aware of all of this and only takes those meds prn ER if worse Patient gave verbal understanding and had no additional questions or concerns at time of discharge All questions answered Medications: New prednisone 50 mg PO DAILY 5 days 5 tabs 0RF codeine-guaifenesin 10-100 mg/5 mL 5 mL PO BEDTIME PRN 118 mL 0RF cough Coding Level of Care Code Est Pt Level 3 (59787) Diagnoses Moderate persistent asthma with exacerbation J45.901 Asthma severity: mild Asthma persistence: unspecified
[2023-08-15 11:14] VITALS: BP 118/72; PULSE 78; TEMP 37; O2SAT 98; BMI 30.7
== END 2023-08-15 11:39 | disposition home or self-care (01) ==
PROVIDERS: PCP Internal Medicine; Visit Provider Physician Assistant
DX: J45.901 Unspecified asthma with (acute) exacerbation (principal)
CPT/HCPCS: 99213